=== PATIENT | male | born 1990 | race Caucasian/White ===

== ENCOUNTER 2016-09-17 13:48 | Emergency (ER) | payer MEDICAID ==
[2016-09-17 14:08] VITALS: BP 134/84
[2016-09-17] MEDS ORDERED: Sodium Chloride 0.9% 10 ML Syringe FLUSH PRN (14:38)
[2016-09-17] MEDS ORDERED: Ketorolac 30 MG/ML SDV IVPUSH ONE (14:40)
[2016-09-17] MEDS ORDERED: Sodium Chloride 0.9% 1,000 ML IV ONE (14:40)
[2016-09-17 15:19] LABS: CHLORIDE,CL 105 mmol/L (98-107); SODIUM,NA 141 mmol/L (136-145)
--- NOTE | 2016-09-18 07:36 | ER ---
Date of Service: 09/17/2016 SUBJECTIVE: Waldemar presents to the emergency room with complaints of left lower quadrant abdominal pain that he has been experiencing chronically for several years, worse in the past 48 hours. The patient states that he has a history of external and internal hemorrhoids and states that he has developed some shirlene rectal bleeding over the past 48 hours. The patient states that he has not been experiencing any fever or chills. Denies any nausea, vomiting, or diarrhea. The patient was worked up for this in [place] and was scheduled for a colonoscopy, but he did not keep his appointment and since has move to [place]. The patient states that he did have a colonoscopy in 2010 and was found to have internal and external hemorrhoids as well as several colon polyps. PAST MEDICAL HISTORY: 1. Positive for methamphetamine use. 2. Colon polyps. 3. Internal and external hemorrhoids. MEDICATIONS: None. ALLERGIES: NKDA. REVIEW OF SYSTEMS: General: No fever or chills. HEENT: No sore throat, rhinorrhea, or congestion. Respiratory: No shortness of breath. Cardiac: Denies any substernal chest pain. No jaw, arm, neck, or back pain. GI: Please see history of present illness. He denies any melena. : Denies any dysuria. Musculoskeletal: No myalgias, arthralgias. Neurologic: No fainting, blackouts, or lightheadedness. PHYSICAL EXAMINATION: General: This is a 25-year-old male patient, who is in no acute distress. Vital Signs: Temperature is 36.6, pulse rate is 67, blood pressure is 134/84, respiratory rate 18, and O2 saturations 97%. Skin: Warm, pink, and dry. HEENT: Mouth, oral mucosa is moist. Lungs: Clear to auscultation. Heart: Regular rate and rhythm. Abdomen: Soft, nontender. There is no hepatosplenomegaly or masses noted. No guarding or rigidity noted. Extremities: Without edema. Neurologic: He is alert and oriented answers all questions appropriately. LABORATORY DATA: WBCs 8.9, hemoglobin is 15.3, platelets are 268. Chemistry comprehensive metabolic panel was obtained and was all within normal limits. CRP was less than 0.2. Urinalysis reveals specific gravity is 1.020. Negative for glucose, ketones, occult blood, nitrites and leukocyte esterase. EMERGENCY ROOM COURSE: The patient was given a liter of normal saline IV and 30 of Toradol IV. He did report some improvement in his abdominal discomfort, but complained of headache after the medication. He remained stable under my care in the emergency room. ASSESSMENT: Rectal bleeding, likely secondary to internal hemorrhoids versus diverticulitis. PLANS: He did provide me with a picture, which did show a small amount of bright red blood in the toilet bowl. Since he does not have a white count I did forego a CT scan at this time and instead referred him for colonoscopy through the [facility]. He has to follow up in the clinic tomorrow at 2 o'clock in the afternoon. I did start him on Cipro 500 mg twice daily and Flagyl 500 mg 3 times daily. He is to return to the emergency room if he has any increased abdominal discomfort, fever, chills, or other worrisome signs or symptoms. All questions were answered. LYSSAK: 09/17/2016 16:06:49 MODL: 09/17/2016 21:54:28 /[id number]
== END 2016-09-17 16:20 | disposition home or self-care (01) ==
LOC: VM.ED 13:48
DX: K62.5 Hemorrhage of anus and rectum (principal)
CPT/HCPCS: 36415; 80053; 81001; 83605; 85025; 86140; 96361; 96374; 99284; J1885; J7030

== ENCOUNTER 2016-12-03 08:45 | Emergency (ER) | payer MEDICAID ==
--- NOTE | 2016-12-04 08:25 | ER ---
Date of Service: 12/03/2016 SUBJECTIVE: Waldemar presents to the emergency room with complaints of rectal pain. The patient has a long-standing history of hemorrhoids and states that he is currently having a flare up. He states that he is unable to perform his job due to the discomfort. He states that he did go to work earlier today and had a bowel movement and is experiencing severe discomfort. He is using over the counter medications such as Anusol and Preparation H with little improvement. He was seen by me in the emergency room in October with similar symptoms. The patient is subsequently requesting a work note to excuse him from work due to his severe hemorrhoids. PAST MEDICAL HISTORY: Hemorrhoids. MEDICATIONS: None. ALLERGIES: NKDA. REVIEW OF SYSTEMS: General: Denies any fever or chills. HEENT: No sore throat, rhinorrhea, or congestion. Respiratory: No shortness of breath. Cardiac: Denies any substernal chest pain. No jaw, arm, neck, or back pain. GI: No nausea, vomiting, or diarrhea. No melena, hematochezia, or hematemesis. : Denies any dysuria. Please see history of present illness. PHYSICAL EXAMINATION: General: This is a 25-year-old male patient in no acute distress. Vital Signs: Blood pressure is 113/66, pulse rate 57, temp is 36.3, respiratory rate 16, O2 saturations 100%. Skin: Warm, pink, and dry. HEENT: Head is normocephalic, atraumatic. Lungs: Clear to auscultation. Heart: Regular rate and rhythm. Abdomen: Soft, nontender. There is no hepatosplenomegaly or masses noted. The remainder of his physical examination is within normal limits. ASSESSMENT: Rectal pain secondary to hemorrhoids. PLAN: The patient will be discharged. I did give him a note for work today. Tylenol and ibuprofen for discomfort. Continue to use Preparation H or Anusol to help with discomfort. I did advise him to follow up with his primary care provider. He may likely require surgery for these hemorrhoids. All questions were answered. MWK: 12/04/2016 02:34:29 MODL: 12/04/2016 07:35:04 /[id number]
== END 2016-12-03 09:12 | disposition home or self-care (01) ==
LOC: VM.ED 08:45
DX: K64.9 Unspecified hemorrhoids (principal)
CPT/HCPCS: 99282

== ENCOUNTER 2017-01-09 20:42 | Emergency (ER) | payer MEDICAID ==
--- NOTE | 2017-01-09 21:29 | EDM.PDOC ---
ED HPI GENERAL MEDICAL PROBLEM - General Chief Complaint: Lower Extremity Injury/Pain Stated Complaint: right foot pain/numbness Time Seen by Provider: 01/09/17 20:45 Source of Information: Reports: Patient, RN, RN Notes Reviewed History Limitations: Reports: No Limitations - History of Present Illness INITIAL COMMENTS - FREE TEXT/NARRATIVE: Patient presents to the emergency room at [facility] after he sustained a crush injury to the right foot. The patient states a jackhammer fell from the back of his truck. The patient states the great toe and fourth digit of the right foot feel numb. The patient complains of global pain over the entire foot. The patient states he had a previous injury of the right foot. No previous right foot surgeries. The patient denies any tingling or paresthesia to the right lower extremity. Otherwise no other concerns. Onset: Today Onset Date: 01/09/17 Duration: Constant, Getting Worse Location: Reports: Lower Extremity, Right Quality: Reports: Throbbing Severity: Severe Improves with: Reports: None Worsens with: Reports: Movement Context: Reports: Trauma Associated Symptoms: Reports: No Other Symptoms Right Feet Pain Score (Numeric/FACES): 10 - Related Data Allergies Allergy/AdvReac Type Severity Reaction Status Date / Time morphine Allergy Anaphylactic Verified 01/09/17 21:26 Shock Home Meds: Home Meds . [No Known Home Meds] 09/17/16 [History] Past Medical History Gastrointestinal History: Reports: Colon Polyp, GI Bleed, Hemorrhoids, Pancreatitis Psychiatric History: Reports: Anxiety, Depression - Past Surgical History HEENT Surgical History: Reports: Other (See Below) Other HEENT Surgeries/Procedures: broken jaw surgery GI Surgical History: Reports: Colonoscopy, Polypectomy Social & Family History - Tobacco Use Smoking Status *Q: Current Every Day Smoker Years of Tobacco use: 14 Packs/Tins Daily: 1 - Recreational Drug Use Recreational Drug Type: Reports: Marijuana/Hashish Review of Systems - Review of Systems Review Of Systems: See Below Constitutional: Denies: Chills, Fever, Weakness Respiratory: Denies: Shortness of Breath, Cough Cardiovascular: Denies: Chest Pain, Palpitations Musculoskeletal: Reports: Foot Pain Skin: Reports: No Symptoms Neurological: Reports: Numbness (great toe and 4th digit right foot). Denies: Paresthesia, Tingling ED EXAM, GENERAL - Physical Exam Exam: See Below Exam Limited By: No Limitations General Appearance: Alert, No Apparent Distress Respiratory/Chest: No Respiratory Distress, Lungs Clear, Normal Breath Sounds Cardiovascular: Normal Peripheral Pulses, Regular Rate, Rhythm Peripheral Pulses: 2+: Posterior Tibial (R), Dorsalis Pedis (R) Extremities: Limited Range of Motion (right foot due to pain; no obvious bone deformity; overall, foot appears normal; no joint laxity) Neurological: Alert, Oriented Skin Exam: Warm, Dry, Intact, Normal Color, No Rash Course - Vital Signs Last Recorded V/S: Last Vital Signs Temp 37.1 C 01/09/17 21:23 Pulse 78 01/09/17 21:23 Resp 18 01/09/17 21:23 BP 140/78 01/09/17 21:23 Pulse Ox 100 01/09/17 21:23 - Orders/Labs/Meds Orders: Active Orders 24 hr Category Date Time Status Foot Comp Min 3V Rt [CR] Stat Exams 01/09/17 21:24 Taken Meds: Medications Discontinued Medications Generic Name Dose Route Start Last Admin Trade Name Baudilioq PRN Reason Stop Dose Admin Acetaminophen 1,000 mg 01/09/17 21:59 Tylenol Extra Strength PO 01/09/17 22:00 ONETIME ONE - Radiology Interpretation Free Text/Narrative:: No acute osseous process - see scanned report in EMR Departure - Departure Time of Disposition: 21:57 Disposition: Home, Self-Care 01 Condition: Good Clinical Impression: Right foot injury Qualifiers: Encounter type: initial encounter Qualified Code(s): S99.921A - Unspecified injury of right foot, initial encounter Foot contusion Qualifiers: Encounter type: initial encounter Laterality: right Qualified Code(s): S90.31XA - Contusion of right foot, initial encounter - Discharge Information Instructions: Crush Injury, Fingers or Toes, [id number], Foot Contusion, Easy -to-Read Forms: ED Department Discharge Additional Instructions: Stable hydrated and rest. May alternate Tylenol and Advil as needed for pain. Rest elevate and ice right foot several times a day. Use Sean wrap for added support. See her primary care physician as symptoms warrant. You may use the right foot normally, as there is no fracture. No restrictions with use of right foot. - Problem List Review Problem List Initiated/Reviewed/Updated: Yes - My Orders Last 24 Hours: My Active Orders 01/09/17 21:24 Foot Comp Min 3V Rt [CR] Stat - Assessment/Plan Last 24 Hours: My Active Orders 01/09/17 21:24 Foot Comp Min 3V Rt [CR] Stat
[2017-01-09] MEDS ORDERED: Acetaminophen 500 MG Tab PO ONE (21:59)
== END 2017-01-09 22:31 | disposition home or self-care (01) ==
LOC: VM.ED 20:42
DX: S90.31XA Contusion of right foot, initial encounter (principal); Z88.5 Allergy status to narcotic agent; F17.210 Nicotine dependence, cigarettes, uncomplicated; W20.8XXA Other cause of strike by thrown, projected or falling object, initial encounter
CPT/HCPCS: 73630; 99283; A9270

== ENCOUNTER 2017-01-28 10:25 | Emergency (ER) | payer MEDICAID ==
--- NOTE | 2017-01-28 11:26 | EDM.PDOC ---
ED HPI GENERAL MEDICAL PROBLEM - General Chief Complaint: General Stated Complaint: hemorrhoid Time Seen by Provider: 01/28/17 10:50 Source of Information: Reports: Patient History Limitations: Reports: No Limitations - History of Present Illness INITIAL COMMENTS - FREE TEXT/NARRATIVE: Pt. has a longstanding history of hemorrhoids and has been having problems with them intermittently. Pt. states that he has a "hard" hemorrhoid that is causing him a great deal of discomfort that he has developed over the past several days. Pt. states that he has had a colonoscopy and has both internal and external hemorrhoids. Onset Date: 01/26/17 Location: Reports: Other (anus) Quality: Reports: Ache, Burning, Throbbing Severity: Moderate Improves with: Reports: None Worsens with: Reports: None Rectal Pain Score (Numeric/FACES): 9 - Related Data Allergies Allergy/AdvReac Type Severity Reaction Status Date / Time morphine Allergy Anaphylactic Verified 01/28/17 10:45 Shock Home Meds: Home Meds . [No Known Home Meds] 09/17/16 [History] Past Medical History Gastrointestinal History: Reports: Colon Polyp, GI Bleed, Hemorrhoids, Pancreatitis Psychiatric History: Reports: Anxiety, Depression - Past Surgical History HEENT Surgical History: Reports: Other (See Below) Other HEENT Surgeries/Procedures: broken jaw surgery GI Surgical History: Reports: Colonoscopy, Polypectomy Social & Family History - Tobacco Use Smoking Status *Q: Current Every Day Smoker Years of Tobacco use: 14 Packs/Tins Daily: 1 - Recreational Drug Use Recreational Drug Type: Reports: Marijuana/Hashish ED ROS GENERAL - Review of Systems Review Of Systems: See Below : Reports: Other (pain and swelling to anus) ED EXAM, GENERAL - Physical Exam Exam: See Below Exam Limited By: No Limitations General Appearance: Alert, WD/WN, No Apparent Distress Rectal (Males) Exam: Hemorrhoids (approx. 1.5cm thrombosed hemorrhoid noted at 3 :00 position. No obvious cellulitis or other pathology.) ED GENERAL MEDICAL PROCEDURES - Additional/Other Procedure(s) Other (Free Text) Procedure(s): Area was prepped and draped in usual sterile fashion. The hemorrhoid was cleansed with clorhexidine. Iris scissors were used to make an elliptical incision, and numerous clots were removed from the thrombosed hemorrhoid. Pt. tolerated the procedure well. Course - Vital Signs Last Recorded V/S: Last Vital Signs Temp 36.3 C 01/28/17 10:45 Pulse 63 01/28/17 10:45 Resp 20 01/28/17 10:45 BP 125/40 L 01/28/17 10:45 Pulse Ox - Orders/Labs/Meds Meds: Medications Discontinued Medications Generic Name Dose Route Start Last Admin Trade Name Vishal PRN Reason Stop Dose Admin Lidocaine HCl 5 ml 01/28/17 10:52 01/28/17 10:58 Xylocaine-Mpf 1% INJECT 01/28/17 10:53 5 ml ONETIME ONE Administration Departure - Departure Time of Disposition: 11:15 Disposition: Home, Self-Care 01 Clinical Impression: Hemorrhoids - Discharge Information Instructions: How to Take a Sitz Bath, Hemorrhoids, [id number] Referrals: PCP,None [Primary Care Provider] - Forms: ED Department Discharge Additional Instructions: Miralax once daily to soften stool Ibuprofen 600mg every 6 hours Sitz baths 3 times daily Follow-up at [facility] in 7-10 days for recheck Off work 01/28/17 and 01/29/17 - Assessment/Plan Assessment:: thrombosed hemorrhoid Plan: Miralax once daily to soften stool Ibuprofen 600mg every 6 hours Sitz baths 3 times daily Follow-up at [facility] in 7-10 days for recheck Off work 01/28/17 and 01/29/17
== END 2017-01-28 11:25 | disposition home or self-care (01) ==
LOC: VM.ED 10:25
DX: K64.5 Perianal venous thrombosis (principal); F17.210 Nicotine dependence, cigarettes, uncomplicated; Z98.890 Other specified postprocedural states; Z88.5 Allergy status to narcotic agent
CPT/HCPCS: 46083; 99282

== ENCOUNTER 2017-05-25 10:55 | Emergency (ER) | payer MEDICAID ==
[2017-05-25 13:17] LABS: CHLORIDE,CL 102 mmol/L (98-107); SODIUM,NA 140 mmol/L (136-145)
[2017-05-25] MEDS ORDERED: Iopamidol 612 MG/ML 100 ML Bottle IVPUSH ONE (13:53)
--- NOTE | 2017-05-26 03:03 | EDM.PDOC ---
ED HPI GENERAL MEDICAL PROBLEM - General Chief Complaint: Abdominal Pain Time Seen by Provider: 05/25/17 11:25 Source of Information: Reports: Patient History Limitations: Reports: No Limitations - History of Present Illness INITIAL COMMENTS - FREE TEXT/NARRATIVE: Pt. states that he has noticed a mass in his mid abdominal area. He states that the area will "swell" and he occasionally is unable to have a BM because of if. He states that he also has some epigastric pain and burning in his chest. No fever or chills. Denies blood in his stools. No nausea, vomiting, or diarrhea. Onset Date: 05/25/17 Location: Reports: Abdomen Quality: Reports: Ache, Throbbing Severity: Moderate Middle Epigastric Pain Score (Numeric/FACES): 8 - Related Data Allergies Allergy/AdvReac Type Severity Reaction Status Date / Time morphine Allergy Anaphylactic Verified 05/25/17 12:08 Shock Home Meds: Home Meds . [No Known Home Meds] 05/25/17 [History] Past Medical History Gastrointestinal History: Reports: Colon Polyp, GI Bleed, Hemorrhoids, Pancreatitis Psychiatric History: Reports: Anxiety, Depression - Past Surgical History HEENT Surgical History: Reports: Other (See Below) Other HEENT Surgeries/Procedures: broken jaw surgery GI Surgical History: Reports: Colonoscopy, Polypectomy, Other (See Below) Other GI Surgeries/Procedures: hemorrhoidectomy Social & Family History - Tobacco Use Smoking Status *Q: Current Every Day Smoker Years of Tobacco use: 13 Packs/Tins Daily: 1 - Caffeine Use Caffeine Use: Reports: None - Alcohol Use Days Per Week of Alcohol Use: 1 Number of Drinks Per Day: 4 Total Drinks Per Week: 4 - Recreational Drug Use Recreational Drug Use: Yes Drug Use in Last 12 Months: Yes Recreational Drug Type: Reports: Marijuana/Hashish Other Recreational Drug Type: mushrooms Recreational Drug Use Frequency: Daily Recreational Drug Last Use: 03/05/17 ED ROS GENERAL - Review of Systems Review Of Systems: See Below Constitutional: Reports: No Symptoms HEENT: Reports: No Symptoms Respiratory: Reports: No Symptoms Cardiovascular: Reports: No Symptoms Endocrine: Reports: No Symptoms GI/Abdominal: Reports: Abdominal Pain, Constipation, Nausea : Reports: No Symptoms Musculoskeletal: Reports: No Symptoms Skin: Reports: No Symptoms Neurological: Reports: No Symptoms Psychiatric: Reports: No Symptoms ED EXAM, GI/ABD - Physical Exam Exam: See Below Exam Limited By: No Limitations General Appearance: Alert, WD/WN, No Apparent Distress Neck: Normal Inspection, Supple, Non-Tender, Full Range of Motion Respiratory/Chest: No Respiratory Distress, Lungs Clear, Normal Breath Sounds, No Accessory Muscle Use, Chest Non-Tender Cardiovascular: Normal Peripheral Pulses, Regular Rate, Rhythm, No Edema, No Gallop, No JVD, No Murmur, No Rub GI/Abdominal Exam: Normal Bowel Sounds, Soft, No Organomegaly, No Distention, No Abnormal Bruit, Tender, Mass Extremities: Normal Inspection, Normal Range of Motion, Non-Tender, Normal Capillary Refill, No Pedal Edema Neurological: Alert, Oriented, CN II-XII Intact, Normal Cognition, Normal Gait, Normal Reflexes, No Motor/Sensory Deficits Course - Vital Signs Last Recorded V/S: Last Vital Signs Temp 36.3 C 05/25/17 11:20 Pulse 68 05/25/17 11:20 Resp 16 05/25/17 11:20 BP 116/73 05/25/17 11:20 Pulse Ox - Orders/Labs/Meds Orders: Active Orders 24 hr Category Date Time Status Chest Abdomen Pelvis w Cont [CT] Stat Exams 05/25/17 13:45 Taken CARBOXY-THC BY GC/MS Stat Lab 05/25/17 14:14 Received Labs: Laboratory Tests 05/25/17 05/25/17 05/25/17 Range/Units 12:50 12:50 12:50 WBC 5.9 (4.0-10.0) x10^3/uL RBC 4.66 (4.5-6.0) x10^6/uL Hgb 14.9 (14.0-18.0) g/dL Hct 44.3 (40.0-52.0) % MCV 95.1 H D (78.0-93.0) fL MCH 32.0 (26.0-32.0) pg MCHC 33.6 (32.0-36.0) g/dL RDW Coeff of Ivonne 12.8 (10.0-15.0) % Plt Count 216 (130-400) x10^3/uL Neut % (Auto) 46.8 L (50.0-80.0) % Lymph % (Auto) 41.1 (25.0-50.0) % [place] % (Auto) 11.1 H (2.0-11.0) % Eos % (Auto) 0.5 (0.0-4.0) % Baso % (Auto) 0.5 (0.2-1.2) % PT 10.8 (9.8-11.8) SEC INR 1.0 L (2.0-3.5) Sodium 140 (136-145) mmol/L Potassium 4.4 (3.5-5.1) mmol/L Chloride 102 (98-107) mmol/L Carbon Dioxide 29 (21-32) mmol/L BUN 11 (7-18) mg/dL Creatinine 1.0 (0.70-1.30) mg/dL Est Cr Clr Drug Dosing 108.75 mL/min Estimated GFR (MDRD) > 60 Glucose 93 (74-106) mg/dL Calcium 9.4 (8.5-10.1) mg/dL Corrected Calcium 9.08 (8.5-10.1) mg/dL Total Bilirubin 0.5 (0.2-1.0) mg/dL AST 23 (15-37) U/L ALT 38 (16-63) U/L Alkaline Phosphatase 82 (46-116) U/L C-Reactive Protein < 0.2 (<=0.9) mg/dL Total Protein 7.5 (6.4-8.2) g/dL Albumin 4.4 (3.4-5.0) g/dL Globulin 3.1 Albumin/Globulin Ratio 1.42 Amylase 63 (25-115) U/L Urine Color (YELLOW) Urine Appearance (CLEAR) Urine pH (5.0-8.0) Ur Specific [place] Urine Protein (NEGATIVE) mg/dL Urine Glucose (UA) (NEGATIVE) mg/dL Urine Ketones (NEGATIVE) mg/dL Urine Occult Blood (NEGATIVE) Urine Nitrite (NEGATIVE) Urine Bilirubin (NEGATIVE) Urine Urobilinogen (0.2) EU/dL Ur Leukocyte Esterase (NEGATIVE) Urine RBC (NOT SEEN) /HPF Urine WBC (NOT SEEN) /HPF Ur Squamous Epith Cells (NEGATIVE) /HPF Urine Bacteria (NEGATIVE) /HPF Urine Mucus (NEGATIVE) /LPF Urine Opiates Screen (NEAGTIVE) Ur Buprenorphine Scrn (NEGATIVE) Ur Oxycodone Screen (NEGATIVE) Urine Methadone Screen (NEGATIVE) Ur Barbiturates Screen (NEGATIVE) Ur Tricyclics Screen (NEGATIVE) Ur Amphetamine Screen (NEGATIVE) U Methamphetamines Scrn (NEGATIVE) Urine MDMA Screen (NEGATIVE) U Benzodiazepines Scrn (NEGATIVE) U Cocaine Metab Screen (NEGATIVE) U Marijuana (THC) Screen (NEGATIVE) 05/25/17 05/25/17 Range/Units 14:14 14:14 WBC (4.0-10.0) x10^3/uL RBC (4.5-6.0) x10^6/uL Hgb (14.0-18.0) g/dL Hct (40.0-52.0) % MCV (78.0-93.0) fL MCH (26.0-32.0) pg MCHC (32.0-36.0) g/dL RDW Coeff of Ivonne (10.0-15.0) % Plt Count (130-400) x10^3/uL Neut % (Auto) (50.0-80.0) % Lymph % (Auto) (25.0-50.0) % [place] % (Auto) (2.0-11.0) % Eos % (Auto) (0.0-4.0) % Baso % (Auto) (0.2-1.2) % PT (9.8-11.8) SEC INR (2.0-3.5) Sodium (136-145) mmol/L Potassium (3.5-5.1) mmol/L Chloride (98-107) mmol/L Carbon Dioxide (21-32) mmol/L BUN (7-18) mg/dL Creatinine (0.70-1.30) mg/dL Est Cr Clr Drug Dosing mL/min Estimated GFR (MDRD) Glucose (74-106) mg/dL Calcium (8.5-10.1) mg/dL Corrected Calcium (8.5-10.1) mg/dL Total Bilirubin (0.2-1.0) mg/dL AST (15-37) U/L ALT (16-63) U/L Alkaline Phosphatase (46-116) U/L C-Reactive Protein (<=0.9) mg/dL Total Protein (6.4-8.2) g/dL Albumin (3.4-5.0) g/dL Globulin Albumin/Globulin Ratio Amylase (25-115) U/L Urine Color Yellow (YELLOW) Urine Appearance Clear (CLEAR) Urine pH 7.5 (5.0-8.0) Ur Specific [place] 1.015 Urine Protein Negative (NEGATIVE) mg/dL Urine Glucose (UA) Negative (NEGATIVE) mg/dL Urine Ketones Negative (NEGATIVE) mg/dL Urine Occult Blood Negative (NEGATIVE) Urine Nitrite Negative (NEGATIVE) Urine Bilirubin Negative (NEGATIVE) Urine Urobilinogen 0.2 (0.2) EU/dL Ur Leukocyte Esterase Negative (NEGATIVE) Urine RBC Not seen (NOT SEEN) /HPF Urine WBC 0-5 (NOT SEEN) /HPF Ur Squamous Epith Cells Rare (NEGATIVE) /HPF Urine Bacteria Rare (NEGATIVE) /HPF Urine Mucus Rare H (NEGATIVE) /LPF Urine Opiates Screen Negative (NEAGTIVE) Ur Buprenorphine Scrn Negative (NEGATIVE) Ur Oxycodone Screen Negative (NEGATIVE) Urine Methadone Screen Negative (NEGATIVE) Ur Barbiturates Screen Negative (NEGATIVE) Ur Tricyclics Screen Negative (NEGATIVE) Ur Amphetamine Screen Negative (NEGATIVE) U Methamphetamines Scrn Negative (NEGATIVE) Urine MDMA Screen Negative (NEGATIVE) U Benzodiazepines Scrn Negative (NEGATIVE) U Cocaine Metab Screen Negative (NEGATIVE) U Marijuana (THC) Screen Positive H (NEGATIVE) Meds: Medications Discontinued Medications Generic Name Dose Route Start Last Admin Trade Name Vishal PRN Reason Stop Dose Admin Iopamidol 100 ml 05/25/17 13:53 05/25/17 13:55 Isovue-300 (61%) IVPUSH 05/25/17 13:54 100 ml ONETIME ONE Administration - Radiology Interpretation Free Text/Narrative:: CT abd/pelvis did not reveal any acute pathology Departure - Departure Time of Disposition: 15:25 Disposition: Home, Self-Care 01 Clinical Impression: Esophagitis, Gastritis - Discharge Information Instructions: Gastroesophageal Reflux Disease, Adult Referrals: PCP,None [Primary Care Provider] - Forms: ED Department Discharge Additional Instructions: Protonix 40mg once daily Follow-up in clinic in 7-10 days. You should contact your Medicaid and see what needs to happen, because you do need follow-up thru the clinic. - My Orders Last 24 Hours: My Active Orders 05/25/17 13:45 Chest Abdomen Pelvis w Cont [CT] Stat 05/25/17 14:14 CARBOXY-THC BY GC/MS Stat - Assessment/Plan Last 24 Hours: My Active Orders 05/25/17 13:45 Chest Abdomen Pelvis w Cont [CT] Stat 05/25/17 14:14 CARBOXY-THC BY GC/MS Stat
== END 2017-05-25 15:25 | disposition home or self-care (01) ==
LOC: VM.ED 10:55
DX: K29.70 Gastritis, unspecified, without bleeding (principal); K20.9 Esophagitis, unspecified; F17.210 Nicotine dependence, cigarettes, uncomplicated; Z88.5 Allergy status to narcotic agent
CPT/HCPCS: 36415; 71260; 74177; 80053; 80305; 80349; 81001; 82150; 85025; 85610; 86140; 99284; Q9967